=== PATIENT | female | born 1960 | race Two or more races ===

== ENCOUNTER 2021-01-06 08:08 | Day surgery (SDC) | payer OTHER | END 2021-01-06 16:10 | disposition home or self-care (01) | LOC: AMB-ENDOS 08:08 | PROVIDERS: ATTEND Colon & Rectal Surgery | DX: D12.4 Benign neoplasm of descending colon (principal); D12.5 Benign neoplasm of sigmoid colon; K64.8 Other hemorrhoids ==

== ENCOUNTER 2021-01-21 11:00 | Inpatient (IN) | payer OTHER ==
[~2021-01-21] VITALS: Ht 157.5 cm; Wt 63.5 kg
[2021-01-22] MEDS ORDERED: GLIMEPIRIDE1 MG (14:12)
[2021-01-22] MEDS ORDERED: NORVASC2.5 M1 PO (14:12)
[2021-01-28] MEDS ORDERED: METFORMIN HCL500 M4 (11:57)
== END 2021-01-30 15:50 | disposition home or self-care (01) | DRG 743 ==
LOC: O/R 01-28 05:50 → OB/GYN 01-28 07:00
PROVIDERS: ADMIT Obstetrics & Gynecology Gynecologic Oncology; ATTEND Obstetrics & Gynecology Gynecologic Oncology
PROC: 0UT24ZZ Resection of Bilateral Ovaries, Percutaneous Endoscopic Approach (ICD-10-PCS; 2021-01-28)
PROC: 0UT74ZZ Resection of Bilateral Fallopian Tubes, Percutaneous Endoscopic Approach (ICD-10-PCS; 2021-01-28)
PROC: 0UT94ZZ Resection of Uterus, Percutaneous Endoscopic Approach (ICD-10-PCS; principal; 2021-01-28 07:00)
DX: N87.1 Moderate cervical dysplasia (principal); N72 Inflammatory disease of cervix uteri; N94.89 Other specified conditions associated with female genital organs and menstrual cycle; N83.292 Other ovarian cyst, left side; N83.291 Other ovarian cyst, right side; N83.8 Other noninflammatory disorders of ovary, fallopian tube and broad ligament; I10 Essential (primary) hypertension; E11.9 Type 2 diabetes mellitus without complications

== ENCOUNTER 2022-05-09 06:05 | Day surgery (SDC) | payer OTHER ==
[~2022-05-09 06:05] MED LIST: GLIMEPIRIDE1 MG; METFORMIN HCL500 M4; NORVASC2.5 M1 PO
== END 2022-05-09 15:30 | disposition home or self-care (01) ==
LOC: AMB-ENDOS 06:05
PROVIDERS: ATTEND Colon & Rectal Surgery
DX: D12.7 Benign neoplasm of rectosigmoid junction (principal); D12.2 Benign neoplasm of ascending colon; D12.0 Benign neoplasm of cecum; Z20.822 Contact with and (suspected) exposure to COVID-19; K57.30 Diverticulosis of large intestine without perforation or abscess without bleeding; K64.8 Other hemorrhoids